=== PATIENT | female | born 1950 | race Caucasian/White ===

== ENCOUNTER 2017-01-21 11:30 | Emergency (ER) | payer MEDICARE ==
[~2017-01-21] VITALS: Ht 157.5 cm; Wt 65.7 kg
[~2017-01-21 11:30] MED LIST: ASCO100072 PO; B-CA1TAB PO; BORO1POW PO; CALC-141 PO; CHOL200012 PO; ESTR42.53 TP; GABA300C10 PO; LISI1TAB5 PO; LORA-445 PO; MAGNESIUM PO; METH5TAB2 PO; METO10TA82 PO; MV-M1CAP15 PO; OXYC-223 PO; PROC10TA78 PO; RALO60TA12 PO; VITA1CAP PO
[2017-01-21] MEDS ORDERED: MAGN400T7 PO (14:22)
[2017-01-21] MEDS ORDERED: FAMOTIDINE 20 MG/2 ML IVP ONE (14:30)
[2017-01-21] MEDS ORDERED: SODIUM CHLORIDE FLUSH 10ML SYR IVF ONE (14:30)
[2017-01-21] MEDS ORDERED: SODIUM CHLORIDE 0.9% 1,000ML IVBOLUS ONE (14:30)
[2017-01-21] MEDS ORDERED: METOCLOPRAMIDE 5 MG/ML, 2ML ONE (14:48)
[2017-01-21] MEDS ORDERED: FAMOTIDINE 20 MG/2 ML ONE (14:48)
[2017-01-21] MEDS ORDERED: METOCLOPRAMIDE 5 MG/ML, 2ML IVPush ONE (15:00)
[2017-01-21 15:16] LABS: ASPARTATE AMINO TRANSFERASE 207 U/L (15-37); BLOOD UREA NITROGEN 34 mg/dL (7-18)
[2017-01-21 15:26] LABS: DIFF TOTAL CELLS COUNTED 100 CELL DIFF
[2017-01-21 15:27] LABS: VERIFY COUNTS? YES
[2017-01-21 17:33] VITALS: BP 158/85
== END 2017-01-21 17:36 | disposition home or self-care (01) ==
LOC: ED 17:20
DX: R11.2 Nausea with vomiting, unspecified (principal); E86.0 Dehydration; I10 Essential (primary) hypertension; Z85.43 Personal history of malignant neoplasm of ovary
CPT/HCPCS: 36415; 80053; 81001; 83690; 85025; 87086; 93005; 96361; 96374; 96375; 99285; J2765; J7030; S0028

== ENCOUNTER 2018-07-01 20:46 | Inpatient (IN) | payer MEDICARE ==
[~2018-07-01] VITALS: Ht 157.5 cm; Wt 62.3 kg
[~2018-07-01 20:46] MED LIST changes: -CHOL200012 PO; +CHOL200074 PO; +MAGN400T7 PO; -OXYC-223 PO; +OXYC-306 PO
[2018-07-01] MEDS ORDERED: SODIUM CHLORIDE FLUSH 10ML SYR IVF ONE (22:00)
[2018-07-01 22:30] LABS: ALANINE AMINOTRANSFERASE 29 U/L (12-78); ALBUMIN 2.5 g/dL (3.4-5.0); ANION GAP 11 mmol/L (5-15); CALCIUM 9.3 mg/dL (8.5-10.1); CHLORIDE 100 mmol/L (98-107); CREATININE 0.65 mg/dL (0.55-1.02)
[2018-07-01 22:35] LABS: ALKALINE PHOSPHATASE 103 U/L (45-117); BILIRUBIN,TOTAL 0.4 mg/dL (0.2-1.0); TOTAL PROTEIN 6.8 g/dL (6.4-8.2)
[2018-07-01 22:47] LABS: MICROSCOPIC NOT IND
[2018-07-01] MEDS ORDERED: OMNIPAQUE 350 MG/ML, 100ML BOTTLE ONE (23:01)
[2018-07-01] MEDS ORDERED: ACETAMINOPHEN 325 MG TABLET ONE (23:14)
[2018-07-01 23:19] LABS: CULTURE INDICATED? NO
[2018-07-01] MEDS ORDERED: ACETAMINOPHEN 325 MG TABLET PO ONE (23:30)
[2018-07-01 23:52] LABS: MEAN CORPUSCULAR HEMOGLOBIN 25.8 pg (27.0-34.8); MEAN CORPUSCULAR HGB CONC 31.4 g/dL (32.4-35.8); MEAN CORPUSCULAR VOLUME 82.3 fL (80-100); MEAN PLATELET VOLUME 6.8 fL (7.4-10.4); PLATELET COUNT 573 x10^3/uL (130-400); RED BLOOD COUNT 3.29 x10^6/uL (3.82-5.3); RED CELL DISTRIBUTION WIDTH 16.8 % (9.6-15.2)
[2018-07-01] MEDS ORDERED: ONDANSETRON 2MG/ML, 2ML ONE (23:53)
[2018-07-01] MEDS ORDERED: MORPHINE SULFATE 4 MG/ML, 1ML ONE (23:53)
[2018-07-01] MEDS: MORPHINE SULFATE 4 MG/ML, 1ML IVPush PRN (23:56)
[2018-07-02] MEDS ORDERED: ONDANSETRON 2MG/ML, 2ML IVPush ONE
[2018-07-02 00:14] LABS: MD YES
[2018-07-02 00:22] LABS: BAND#(MANUAL) 0.53 x10^3/uL; BANDS%(MANUAL) 3 % (0-7); BASOS#(MANUAL) 0.18 x10^3/uL (0-0.1); BASOS% (MANUAL) 1 % (0-1); EOS#(MANUAL) 0.18 x10^3/uL (0.0-0.4); EOS% (MANUAL) 1 % (1-7); LYMPH#(MANUAL) 0.53 x10^3/uL (1-3.4); LYMPHS% (MANUAL) 3 % (22-44); MONOS#(MANUAL) 0.18 x10^3/uL (0.3-2.7); MONOS% (MANUAL) 1 % (2-9); SEG#(MANUAL) 16.11 x10^3/uL (1.8-6.8); SEGS% (MANUAL) 91 % (42-75)
[2018-07-02 00:23] LABS: <PLATELET ESTIMATE> INCREASED; <PLT MORPHOLOGY> NORMAL PLT MORPH; ANISOCYTOSIS 1+; HYPOCHROMIA 1+; OVALOCYTES 1+; POLYCHROMASIA 1+; TOXIC GRAN 1+
[2018-07-02] MEDS ORDERED: SODIUM CHLORIDE 0.9% 1,000 ML IV ONE (00:24)
[2018-07-02] MEDS ORDERED: ONDANSETRON 2MG/ML, 2ML IVPush PRN ×2 (00:30→01:00)
[2018-07-02] MEDS ORDERED: HYDROmorphone 1 MG/ML, 1ML IVPush PRN (00:30)
[2018-07-02] MEDS ORDERED: ACETAMINOPHEN 325 MG TABLET PO PRN (01:00)
[2018-07-02] MEDS ORDERED: MORPHINE SULFATE 4 MG/ML, 1ML ONE (01:03)
[2018-07-02] MEDS: MORPHINE SULFATE 4 MG/ML, 1ML IVPush PRN (01:06)
[2018-07-02 01:30] VITALS: BP 126/70
[2018-07-02] MEDS: SODIUM CHLORIDE 0.9% 1,000 ML IV SCH ×2 (02:00→08:10)
[2018-07-02] MEDS: HEPARIN 5,000 UNITS/ML, 1ML SQ SCH ×4 (02:01→23:37)
[2018-07-02 02:26] LABS: PROTHROMBIN TIME 10.4 Seconds (9.6-11.5)
[2018-07-02] MEDS: morphine SULFATE 10 MG/ML, 1ML IVPush PRN ×3 (06:02→23:00)
[2018-07-02 07:51] VITALS: BP 125/68
[2018-07-02 07:53] VITALS: BP 147/65
[2018-07-02 07:54] VITALS: BP 128/67
[2018-07-02] MEDS: GABAPENTIN 300 MG CAPSULE PO SCH ×2 (08:14→20:25)
[2018-07-02] MEDS ORDERED: METHADONE 5 MG TABLET PO SCH (09:00)
[2018-07-02 13:01] VITALS: BP 124/59
[2018-07-02] MEDS ORDERED: FENTANYL 12 MCG PATCH TD SCH (13:30)
[2018-07-02 20:41] VITALS: BP 106/51
[2018-07-02] MEDS ORDERED: GABAPENTIN 300 MG CAPSULE PO ONE (23:30)
[2018-07-02] MEDS ORDERED: GABAPENTIN 300 MG CAPSULE ONE (23:35)
[2018-07-03 02:17] VITALS: BP 116/50
[2018-07-03] MEDS: morphine SULFATE 10 MG/ML, 1ML IVPush PRN ×4 (02:30→12:15)
[2018-07-03 02:42] VITALS: BP 118/82
[2018-07-03 04:51] LABS: MEAN CORPUSCULAR HEMOGLOBIN 26.5 pg (27.0-34.8); MEAN CORPUSCULAR HGB CONC 32.2 g/dL (32.4-35.8); MEAN CORPUSCULAR VOLUME 82.3 fL (80-100); MEAN PLATELET VOLUME 6.7 fL (7.4-10.4); PLATELET COUNT 500 x10^3/uL (130-400); RED BLOOD COUNT 3.01 x10^6/uL (3.82-5.3); RED CELL DISTRIBUTION WIDTH 17.2 % (9.6-15.2)
[2018-07-03 04:59] LABS: ANION GAP 8 mmol/L (5-15); CALCIUM 8.1 mg/dL (8.5-10.1); CHLORIDE 107 mmol/L (98-107)
[2018-07-03 05:02] LABS: CREATININE 0.35 mg/dL (0.55-1.02)
[2018-07-03 05:46] LABS: BASOPHILS # (AUTO) 0.01 x10^3/uL (0-0.1); BASOPHILS % (AUTO) 0 % (0-1); EOSINOPHILS % (AUTO) 1 % (1-7); LYMPHOCYTES % (AUTO) 10 % (22-44); MD SCAN; MONOCYTES # (AUTO) 0.73 x10^3/uL (0.2-0.8); MONOCYTES % (AUTO) 5 % (2-9); NEUTROPHILS # (AUTO) 12.31 x10^3/uL (1.8-6.8); NEUTROPHILS % (AUTO) 85 % (42-75)
[2018-07-03 08:35] VITALS: BP 112/53
[2018-07-03] MEDS: HEPARIN 5,000 UNITS/ML, 1ML SQ SCH (08:43)
[2018-07-03] MEDS ORDERED: GABAPENTIN 300 MG CAPSULE PO SCH (09:00)
[2018-07-03] MEDS ORDERED: GABA300C10 PO (10:49)
[2018-07-03] MEDS ORDERED: FENT1PAT74 TD (10:49)
[2018-07-05] MEDS ORDERED: FENTANYL REMOVE PATCH NOTE XX SCH (15:30)
== END 2018-07-03 19:27 | disposition hospice, home (50) | DRG 695 ==
LOC: ED 21:48 → EDIP 07-02 00:24 → 3NW 07-02 01:13
PROVIDERS: ADMIT Family Medicine; ATTEND Family Medicine
PROC: 0T9B70Z Drainage of Bladder with Drainage Device, Via Natural or Artificial Opening (ICD-10-PCS; principal; 2018-07-02)
DX: R33.8 Other retention of urine (principal); E43 Unspecified severe protein-calorie malnutrition; C56.9 Malignant neoplasm of unspecified ovary; C79.89 Secondary malignant neoplasm of other specified sites; N13.30 Unspecified hydronephrosis; C16.9 Malignant neoplasm of stomach, unspecified; E87.1 Hypo-osmolality and hyponatremia; K56.600 Partial intestinal obstruction, unspecified as to cause; C78.7 Secondary malignant neoplasm of liver and intrahepatic bile duct; F11.20 Opioid dependence, uncomplicated; N93.9 Abnormal uterine and vaginal bleeding, unspecified; D50.0 Iron deficiency anemia secondary to blood loss (chronic); R53.83 Other fatigue; M79.89 Other specified soft tissue disorders; I10 Essential (primary) hypertension; E88.09 Other disorders of plasma-protein metabolism, not elsewhere classified; Z66 Do not resuscitate; Z51.5 Encounter for palliative care; G89.29 Other chronic pain; N23 Unspecified renal colic; N32.9 Bladder disorder, unspecified; Z85.43 Personal history of malignant neoplasm of ovary; Z83.3 Family history of diabetes mellitus; Z90.710 Acquired absence of both cervix and uterus; Z88.0 Allergy status to penicillin; Z88.1 Allergy status to other antibiotic agents; Z88.2 Allergy status to sulfonamides
CPT/HCPCS: 36415; 51702; 71045; 74177; 80048; 80053; 81003; 83605; 83690; 83880; 85025; 85610; 86850; 86900; 87040; 93005; 93970; 96374; G0378; J1644; J2405; Q9967; J2270; J7030